=== PATIENT | male | born 1980 ===

== ENCOUNTER 2024-01-16 00:43 | Emergency (ER) | payer SELFPAY ==
[~2024-01-16] VITALS: Ht 193 cm; Wt 137.0 kg
[2024-01-16] MEDS ORDERED: LIDOcaine 1% w/epiNEPHrine 1:200,000 30ml vial SQ ONE (01:30)
[2024-01-16] MEDS: LIDOcaine 1% W/epiNEPHrine 1:100,000 20ml vial IJ ONE (01:35)
[2024-01-16] MEDS: bacitracin 15gm ointment TP ONE (02:32)
[2024-01-16] MEDS: bacitracin ointment unit dose packet TP ONE (02:34)
[2024-01-16 02:36] VITALS: BP 151/97; PULSE 72; RESP 16; TEMP 98; O2SAT 97
== END 2024-01-16 02:30 | disposition home or self-care (01) ==
LOC: ER 00:44
DX: S01.01XA Laceration without foreign body of scalp, initial encounter (principal); S06.0XAA Concussion with loss of consciousness status unknown, initial encounter; Z88.0 Allergy status to penicillin; W01.0XXA Fall on same level from slipping, tripping and stumbling without subsequent striking against object, initial encounter; Y93.89 Activity, other specified; Y92.89 Other specified places as the place of occurrence of the external cause; Y99.8 Other external cause status
CPT/HCPCS: 12001; 99284